=== PATIENT | female | born 1990 | race Two or more races ===

== ENCOUNTER 2024-12-26 15:27 | Emergency (ER) | payer SELFPAY ==
[~2024-12-26] VITALS: Ht 167.6 cm; Wt 100.0 kg
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
[2024-12-26] MEDS: ACETAMINOPHEN 325 MG TAB PO ONE (17:45)
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
[2024-12-26] MEDS ORDERED: IBU600T PO (18:44)
[2024-12-26 18:46] VITALS: BP 128/84; PULSE 74; RESP 16; TEMP 98.5; O2SAT 98
== END 2024-12-26 19:22 | disposition home or self-care (01) ==
LOC: EDBD 15:27 → ER 15:27
DX: S50.812A Abrasion of left forearm, initial encounter (principal); E11.9 Type 2 diabetes mellitus without complications; Z98.890 Other specified postprocedural states; V89.2XXA Person injured in unspecified motor-vehicle accident, traffic, initial encounter; Y93.89 Activity, other specified; Y92.89 Other specified places as the place of occurrence of the external cause; Y99.8 Other external cause status
CPT/HCPCS: 73030; 73060